=== PATIENT | male | born 1980 ===

== ENCOUNTER 2016-06-19 06:52 | Emergency (ER) | payer OTHER ==
--- NOTE | 2016-06-19 07:46 | RAD ---
06/19/2016 7:42 AM ANKLE-RIGHT 3 VIEW History: 30 pound weight fell onto medial right ankle yesterday. Initial encounter. Technique: 3 view Ankle Side:Right Comparison: None Findings: Bones: No fracture or dislocation. Joints: The ankle mortise is normally aligned. Joints:Remaining joints are unremarkable. Associated Findings: Large amount of soft tissue swelling is noted along the medial ankle and foot. Impression: 1. No fracture or dislocation. Soft tissue swelling along the medial aspect of the ankle and foot.
== END 2016-06-19 08:35 | disposition home or self-care (01) ==
LOC: ED 06:52
DX: S93.401A Sprain of unspecified ligament of right ankle, initial encounter (principal); W22.8XXA Striking against or struck by other objects, initial encounter; Y93.H3 Activity, building and construction; Y92.69 Other specified industrial and construction area as the place of occurrence of the external cause; Y99.0 Civilian activity done for income or pay